=== PATIENT | female | born 1965 | race American Indian/Alaskan Native ===

== ENCOUNTER 2017-11-28 06:16 | Day surgery (SDC) | payer MEDICAID ==
[2017-11-12 09:22] VITALS: BMI 29.2
--- NOTE | 2017-11-28 01:12 | HP ---
DATE OF EXAM: 11/27/2017 REASON FOR ADMISSION: Left heart catheterization, possible angioplasty, abnormal stress test. BRIEF CLINICAL HISTORY: This is a 52-year-old obese female with past medical history of hypothyroidism, being seen by Dr. Cm, who recently had an abnormal stress test. So, patient is scheduled for elective cardiac catheterization, possible angioplasty. Patient had stress test done by Dr. Reynolds dated 11/11/2017 that shows regular stress test, stopped after 7 minutes and 2 seconds on Geovani protocol due to tightness in the chest and shortness of breath, achieved 91% of predicted heart rate. It shows [address] slopping in II, III, aVF, V5, V6. Test suggests nuclear stress test or cardiac catheterization. PAST MEDICAL HISTORY: Significant for hypothyroidism and obesity. SOCIAL HISTORY: Denies any history of alcohol abuse. CURRENT MEDICATIONS: Patient is taking at home levothyroxine 100 mcg daily, aspirin 81 mg daily. REVIEW OF SYSTEMS: As per HPI. PHYSICAL EXAMINATION: VITAL SIGNS: Height of the patient is 5 feet 4 inches, weight of the patient 170 pounds, body mass index 30 kg/m2. Rest of the examination as follows. Temperature afebrile, heart rate 80, blood pressure 130/80. HEENT: PERRLA. Extraocular muscles intact. NECK: Supple. No carotid bruit or thyromegaly. CHEST: Clear to auscultation. HEART: S1 and S2, regular. ABDOMEN: Soft. EXTREMITIES: Clubbing and cyanosis negative. LABORATORY DATA: WBC 7.1 as of 10/09/2017, hemoglobin 10 with hematocrit 30.9, platelet count 300. Chemistry shows on 10/09/2017, sodium 143, potassium 3.2, chloride 107, carbon dioxide 22, anion gap of 18, BUN 14, creatinine 0.7. IMPRESSION: Chest pain, abnormal stress test, hypothyroidism, obesity, multiple risks for coronary artery disease including abnormal stress test, suggest cardiac catheterization. Benefits and alternatives discussed with the patient. The patient agreed to proceed with cardiac catheterization. Further recommendation after cardiac catheterization. We will follow with you. Thank you Dr. Cm, for providing opportunity in taking care of the patient Beronica Whitaker. Litzy Muñiz MD
[2017-11-28] MEDS ORDERED: Phenylephrine 10 mg/ml Inj ONE (06:51)
[2017-11-28] MEDS ORDERED: Lidocaine 2% Inj (20ml) ONE (06:51)
[2017-11-28] MEDS ORDERED: Verapamil 2 ML ONE (06:51)
[2017-11-28] MEDS ORDERED: Nitroglycerin 50mg in D5W 50 MG/250 ML BOTTLE IV ONE (06:52)
[2017-11-28] MEDS ORDERED: Iodixanol 320 MG/ML 100 ML BOTTLE IV ONE (06:52)
[2017-11-28] MEDS ORDERED: Iodixanol 320 MG/ML 200 ML BOTTLE IV ONE (06:52)
[2017-11-28] MEDS ORDERED: Midazolam 2 MG/2 ML VIAL ONE ×3 (06:52→08:44)
[2017-11-28] MEDS ORDERED: Iohexol 350mgl/ml 50 ML ONE (06:52)
[2017-11-28 07:08] LABS: BASO # 0.01 K/mm3 (0.0-2.0); BASO % 0.2 % (0.0-3.0); EOS # 0.1 (0.0-0.7); EOS % 1.8 % (1.5-5.0); GRAN # 2.76 (1.4-6.5); GRAN % 44.7 % (50.0-68.0); LYMPH # 2.8 (1.2-3.4); LYMPH % 45.5 % (22.0-35.0); MEAN CELL VOLUME 81.7 fl (80.0-105.0); MEAN CORPUSCULAR HEMOGLOBIN 26.6 pg (25.0-35.0); MEAN CORPUSCULAR HGB CONC 32.6 g/dl (31.0-37.0); MEAN PLATELET VOLUME 8.1 fl (7.0-11.0); MONO # 0.5 (0.1-0.6); MONO % 7.8 % (1.0-6.0); RBC 3.38 10^6/uL (3.5-6.1); RED CELL DISTRIBUTION WIDTH 14.3 % (11.5-14.5); WHITE BLOOD COUNT 6.2 10^3/ul (4.5-11.0)
[2017-11-28 07:10] LABS: BLOOD UREA NITROGEN 20 mg/dL (7-21); CALCIUM 8.4 mg/dL (8.4-10.5); GFR AFRICAN-AMERICAN > 60; GFR NON-AFRICAN AMERICAN > 60; HDL CHOLESTEROL 62 mg/dL (29-60)
[2017-11-28 07:12] VITALS: O2SAT 100
[2017-11-28 07:13] LABS: INR 1.07 (0.93-1.08); PARTIAL THROMBOPLASTIN TIME 30.6 Seconds (25.1-36.5); PROTHROMBIN TIME 12.3 SECONDS (9.4-12.5)
[2017-11-28 07:21] LABS: LDL CHOLESTEROL 102 mg/dL (0-129)
[2017-11-28] MEDS ORDERED: Potassium Chloride 20 mEq ER Tab PO ONE (07:22)
[2017-11-28] MEDS ORDERED: Adenosine 90 mg/30mL IV ONE (08:23)
[2017-11-28] MEDS ORDERED: Eptifibatide 20 mg/10mL Inj IVP ONE (08:23)
--- NOTE | 2017-11-28 09:11 | CARD ---
APPROVED REPORT EKG Measurement Heart [id number] <Conclusion> Sinus bradycardia Nonspecific T wave abnormality
[2017-11-28] MEDS ORDERED: Sodium Chloride 0.9% 1,000 ML IV SCH (10:00)
[2017-11-28] MEDS ORDERED: Levothyroxine 88 MCG TAB PO SCH (10:00)
[2017-11-28] MEDS ORDERED: Metoprolol Succinate 25 mg XL Tab PO SCH (10:00)
--- NOTE | 2017-11-28 10:11 | CPOSTOP ---
DATE: 11/28/2017 CARDIOVASCULAR LAB PROCEDURE POST PROCEDURE NOTE DICTATING PHYSICIAN: Litzy Muñiz MD. ETIOLOGY TEACHER: BE Benavides. TYPE OF ANESTHESIA: Moderate conscious sedation, total 3 mg of Versed, 100 of fentanyl given periodically. Started 50 mcg of fentanyl and 1 mg of Versed. PRE-PROCEDURE DIAGNOSES: Unstable angina, chest pain, abnormal stress test. PROCEDURE PERFORMED: Left heart catheterization and angioplasty of left anterior descending and right coronary artery. FINDINGS: LAD proximal 80%, mid LAD 90% stenosis, RCA proximal went to 80, mid RCA 80% stenosis. FINAL DIAGNOSIS: Two-vessel coronary artery disease. POST PROCEDURE CONDITION: Postprocedure, the patient's condition is stable. VASCULAR ACCESS SITE: Left radial. CLOSURE DEVICE: TR Band. RADIATION DOSE: 98533.4 cGycm2. TOTAL FLUORO TIME: 21.7 minutes. Litzy Muñiz MD
[2017-11-28 10:59] VITALS: TEMP 97.6
[2017-11-28 13:08] LABS: EOS # 0.1 (0.0-0.7); EOS % 1.6 % (1.5-5.0); GRAN # 2.36 (1.4-6.5); GRAN % 38.5 % (50.0-68.0); HEMOGLOBIN 9.7 g/dL (12.0-16.0); LYMPH # 3.4 (1.2-3.4); LYMPH % 55.5 % (22.0-35.0); MEAN CELL VOLUME 81.8 fl (80.0-105.0); MEAN CORPUSCULAR HEMOGLOBIN 26.8 pg (25.0-35.0); MEAN CORPUSCULAR HGB CONC 32.8 g/dl (31.0-37.0); MEAN PLATELET VOLUME 8.1 fl (7.0-11.0); MONO # 0.3 (0.1-0.6); MONO % 4.4 % (1.0-6.0); RBC 3.62 10^6/uL (3.5-6.1); RED CELL DISTRIBUTION WIDTH 14.2 % (11.5-14.5); WHITE BLOOD COUNT 6.1 10^3/ul (4.5-11.0)
[2017-11-28 13:13] LABS: BLOOD UREA NITROGEN 16 mg/dL (7-21); CALCIUM 8.2 mg/dL (8.4-10.5); GFR AFRICAN-AMERICAN > 60; GFR NON-AFRICAN AMERICAN > 60
--- NOTE | 2017-11-28 13:16 | CARD ---
APPROVED REPORT EKG Measurement Heart [id number] <Conclusion> Sinus bradycardia
[2017-11-28] MEDS ORDERED: Oxycodone/Acetaminophen 5/325 mg Tab PO PRN (13:56)
[2017-11-28 14:42] VITALS: BP 158/79; PULSE 72; RESP 14
--- NOTE | 2017-11-28 16:29 | CARD ---
APPROVED REPORT Procedure(s) performed: Left Heart Catheterization PTCA with Stenting of Proximal LAD with JOHNATHON PTCA with Stenting of Mid LAD with JOHNATHON PTCA with Stenting of MId RCA with JOHNATHON PTCA with Stenting of Proximal RCA with JOHNATHON HISTORY The patient is a 52 year-old female with a history of : hx of hypothyroidism and chest pain and abnormal regular stress test asd nuclear Stress test was not approved by insurance.. INDICATION The indication(s) include : positive stress test. CASE TECHNIQUE The patient was brought electively to the Cardiac Catheterization Laboratory in a fasting state and was prepped and draped in a sterile manner. The left wrist was infiltrated with 2% Lidocaine subcutaneous anesthesia. A 6FR GLIDESHEATH ACCESS KIT sheath was inserted into the left radial artery without difficulty. Coronary angiography was performed using coronary diagnostic catheters. The left coronary system was accessed and visualized with a Diagnostic ,5F JL 4 CATH DXT 100 CM catheter. The right coronary system was accessed and visualized with a Diagnostic ,5F JR 4 CATH DXT 100 CM catheter. The left ventricle was accessed and visualized with a 5F JR 4 CATH DXT 100 CM catheter. Left ventricular/Aortic Valve gradient assessed on pullback. Left ventriculogram was performed in FERGUSON projection. Closure device was deployed with a Fr TR Band (Regular) without any complications. The patient tolerated the procedure well and there were no complications associated with the procedure. Vessel Analysis The patient's coronary anatomy is right dominant. The left main coronary artery is a medium size vessel without significant stenosis. The left main bifurcates to the left anterior descending and circumflex. The left anterior descending artery is a large size vessel with diffuse calcification noted throughout this vessel and with significant stenosis. There is a 80% stenosis in the proximal segment. another 90% stenosis in Mid segment The first diagonal branch is a small size vessel with intimal irregularities. The circumflex artery is a medium size vessel with intimal irregularities and without significant stenosis. The first obtuse marginal branch is a medium size vessel with intimal irregularities and without significant stenosis. The second obtuse marginal branch is a small size vessel with intimal irregularities and without significant stenosis. The right coronary artery is a medium size vessel with diffuse calcification noted throughout this vessel and with significant stenosis. There is a 80% stenosis in the mid segment. another 70-80% stenosis in proximal segment The right posterior descending artery is a large size vessel without significant stenosis. The right posterolateral branch is a large size vessel with intimal irregularities and without significant stenosis. Left Ventricle The left ventricle is normal in size with normal contractility. There was no cardiomyopathy. The left ventricular ejection fraction is estimated to be 65%. The left ventricular end diastolic pressure is 15-18 mmHg. There was no gradient across the aortic valve upon pullback. PCI Technique Lesion Anticoagulation was achieved with Heparin. Percutaneous coronary intervention was performed on the proximal left anterior descending artery segment. The lesion stenosis prior to intervention was 80% with REBEKAH 2 flow. A 6 Fr XB 3.5 Guide Catheter was used to engage the ostium. A Luge 182 Interventional Guidewire was used to cross the lesion. BALLOON DILATION A Balloon catheter 2.5 x 15 mm Trek RX was inserted and inflated up to 8.00atm for 22seconds. STENT DEPLOYMENT A drug-eluting stent STENT RESOLUTE BHAVIK 3.5 X 34 was inserted and inflated up to 14.00atm for 19seconds. POST STENT DEPLOYMENT BALLOON DILATION A Balloon catheter 3.75 x 15 mm Sprinter NC was inserted and inflated up to 14.00atm for 19seconds. Final angiography reveals 0 % stenosis with REBEKAH 3 flow. PCI Technique Lesion 2 Percutaneous Coronary Intervention was performed on the mid left anterior descending artery segment. The lesion stenosis prior to intervention was 90% with REBEKAH 2 flow. A 6 Fr XB 3.5 Guide Catheter was used to engage the ostium. A Luge 182 Interventional Guidewire was used to cross the lesion. BALLOON DILATION A Balloon catheter 2.5 x 15 mm Trek RX was inserted and inflated up to 16.00atm for 19seconds. STENT DEPLOYMENT A drug-eluting stent STENT RESOLUTE BHAVIK 3.5 X 34 was inserted and inflated up to 16.00atm for 19seconds. POST STENT DEPLOYMENT BALLOON DILATION A Balloon catheter 4.0 x 9 mm Sprinter NC was inserted and inflated up to 16.00atm for 19seconds. Final angiography reveals 0 % stenosis with REBEKAH 3 flow. PCI Technique Lesion 3 Percutaneous Coronary Intervention was performed on the mid right coronary artery. The lesion stenosis prior to intervention was 80% with REBEKAH 2 flow. A 6 Fr JR 3.5 Guide Catheter was used to engage the ostium. BALLOON DILATION A Balloon catheter 2.5 x 15 mm Trek RX was inserted and inflated up to 8.00atm for 5seconds. STENT DEPLOYMENT A drug-eluting stent STENT RESOLUTE BHAVIK 2.75 X22 was inserted and inflated up to 12.00atm for 120seconds. Final angiography reveals 0 % stenosis with REBEKAH 3 flow. PCI Technique Lesion 4 Percutaneous Coronary Intervention was performed on the proximal right coronary artery. The lesion stenosis prior to intervention was 70-80% with REBEKAH flow. A 6 Fr JR 3.5 Guide Catheter was used to engage the ostium. A Baroc Pub 182 Interventional Guidewire was used to cross the lesion. BALLOON DILATION A Balloon catheter 2.5 x 15 mm Trek RX was inserted and inflated up to 15.00atm for 8seconds. STENT DEPLOYMENT A drug-eluting stent STENT RESOLUTE BHAVIK 3.0 X 26 was inserted and inflated up to 15.00atm for 8seconds. POST STENT DEPLOYMENT BALLOON DILATION A Balloon catheter 4.0 x 12 mm Trek RX NC was inserted and inflated up to 15.00atm for 8seconds. Final angiography reveals 0 % stenosis with REBEKAH 3 flow. Conclusion Multi vessel CAD involving Proximal and Mid LAD , and Proximal and Mid RCA Preserved LV Fx. EF-655, EDP-15-18 mmof hg. Successful PTCA with Johnathon of Proximal and Mid LAD as well as proximal and Mid RCA. Recommendations Cardiac Rehabilitation ReferralDaily ASA with Plavix for at least one year Aggressive Medical TherapyCardiac Risk Reduction Program Weight Loss Reduction Program Add Atovastatin 10 mg po andMetoprolol Succinate 25 mg po daily in current regimen. Cc; drs. Cm / manuela.
== END 2017-11-28 18:27 | disposition home or self-care (01) ==
LOC: CATH 06:16 → 2RNO 09:51 → CATH 18:27
PROVIDERS: ATTEND Internal Medicine Cardiovascular Disease
DX: I25.110 Atherosclerotic heart disease of native coronary artery with unstable angina pectoris (principal); E66.9 Obesity, unspecified; E03.9 Hypothyroidism, unspecified; Z79.82 Long term (current) use of aspirin; Z68.30 Body mass index [BMI] 30.0-30.9, adult
CPT/HCPCS: 36415; 80048; 80061; 85025; 85175; 85610; 85730; 86850; 86870; 86900; 93005; 93458; 99152; 99153; C1725 ×5; C1769 ×2; C1874 ×3; C1887 ×3; C9600; C9601; J0153; J1327; J1644 ×2; J2250; J3010; J7030; J7040; Q9966; Q9967

== ENCOUNTER 2018-09-25 08:14 | Outpatient (CLI) | payer BC | END 2018-09-25 08:15 | disposition home or self-care (01) | LOC: CARDIO 08:14 | DX: R07.89 Other chest pain (principal); I25.10 Atherosclerotic heart disease of native coronary artery without angina pectoris; E03.9 Hypothyroidism, unspecified; E78.00 Pure hypercholesterolemia, unspecified; I08.1 Rheumatic disorders of both mitral and tricuspid valves; I10 Essential (primary) hypertension; I31.3 Pericardial effusion (noninflammatory); Z95.5 Presence of coronary angioplasty implant and graft ==